=== PATIENT | male | born 2000 | race Caucasian/White ===

== ENCOUNTER 2020-03-01 10:22 | Emergency (ER) | payer OTHER ==
[~2020-03-01] VITALS: Ht 180.3 cm; Wt 83.9 kg
[~2020-03-01 10:22] MED LIST: ALBUTEROL0.09 MG/A2 IH; AMOXIL250 MG/5 M PO; CEFZIL 250250 MG/5 M PO; CEFZIL250 MG/5 M PO; CLARITIN10 MG PO; NASONEX0.05 MG/AC NS; PROAIR HFA0.09 MG/AC IH; XOPENEX0.31 MG INH; ZOVIRAX400 MG PO; Zofran4 MG PO
[2020-03-01 10:27] VITALS: BP 146/80
== END 2020-03-01 11:28 | disposition home or self-care (01) ==
LOC: ED 10:22
DX: B34.9 Viral infection, unspecified (principal); Z20.828 Contact with and (suspected) exposure to other viral communicable diseases; Z88.1 Allergy status to other antibiotic agents

== ENCOUNTER 2020-08-26 19:47 | Emergency (ER) | payer OTHER ==
[~2020-08-26] VITALS: Ht 170.1 cm; Wt 81.6 kg
[2020-08-26 19:54] VITALS: BP 136/88
== END 2020-08-26 20:35 | disposition home or self-care (01) ==
LOC: ED 19:47
DX: M27.3 Alveolitis of jaws (principal); Z88.1 Allergy status to other antibiotic agents

== ENCOUNTER 2020-08-30 04:24 | Emergency (ER) | payer OTHER ==
[~2020-08-30] VITALS: Ht 170.1 cm; Wt 81.6 kg
[2020-08-30 04:32] VITALS: BP 149/92
== END 2020-08-30 05:14 | disposition home or self-care (01) ==
LOC: ED 04:24
DX: M27.3 Alveolitis of jaws (principal); F17.200 Nicotine dependence, unspecified, uncomplicated; Z88.8 Allergy status to other drugs, medicaments and biological substances; Z88.0 Allergy status to penicillin; Z98.890 Other specified postprocedural states

== ENCOUNTER 2021-02-06 13:01 | Emergency (ER) | payer OTHER ==
[2021-02-06 13:04] VITALS: BP 129/83
== END 2021-02-06 13:41 | disposition left against medical advice (07) ==
LOC: ED 13:01
DX: J00 Acute nasopharyngitis [common cold] (principal); Z53.21 Procedure and treatment not carried out due to patient leaving prior to being seen by health care provider